=== PATIENT | male | born 1955 | race African-American/Black ===

== ENCOUNTER → 2017-01-13 | Outpatient (CLI) | payer MEDICAID | END | disposition home or self-care (01) | LOC: CFH 13:27 | PROVIDERS: ATTEND Nurse Practitioner | DX: R91.8 Other nonspecific abnormal finding of lung field (principal); M41.84 Other forms of scoliosis, thoracic region; K76.89 Other specified diseases of liver; I25.10 Atherosclerotic heart disease of native coronary artery without angina pectoris | CPT/HCPCS: 71250 ==

== ENCOUNTER → 2018-02-03 | Outpatient (CLI) | payer MEDICAID | LOC: CFH 09:49 | PROVIDERS: ATTEND Nurse Practitioner | DX: J43.2 Centrilobular emphysema (principal); J84.10 Pulmonary fibrosis, unspecified | CPT/HCPCS: 71250 ==